=== PATIENT | male | born 1950 | race Caucasian/White ===

== ENCOUNTER 2020-02-04 16:10 | Outpatient (CLI) | payer MEDICARE, OTHER, SELFPAY ==
[2020-02-04 16:51] LABS: Basophils # 0.1 10^3/uL (0.0-0.1); Basophils % 0.9 %; Eosinophils # 0.1 10^3/uL (0.0-0.8); Eosinophils % 1.6 %; Hematocrit 47.8 % (42.0-52.0); Hemoglobin 16.1 g/dL (11.7-16.6); Lymphocytes # 1.9 10^3/uL (0.8-4.8); Lymphocytes % 22.6 %; Mean Corpuscular HGB Conc 33.7 g/dL (30.0-36.0); Mean Corpuscular Hemoglobin 31.1 pg (28.0-34.0); Mean Corpuscular Volume 92.5 fL (80-94); Mean Platelet Volume 10.2 fL (7.4-10.4); Monocytes # 0.9 10^3/uL (0.2-0.9); Monocytes % 11.4 %; Neutrophils # 5.18 10^3/uL (1.8-7.7); Neutrophils % 63.1 %; Nucleated Red Blood Cells % 0 %; Platelet Count 286 10^3/cmm (130-400); Red Blood Count 5.17 10^6/uL (4.1-5.3); Red Cell Distribution Width 13.2 % (12.1-15.1); White Blood Count 8.2 10^3/uL (4.0-10.0)
[2020-02-04 17:14] LABS: Prostate Specific Antigen 0.489 ng/mL (0-4); Thyroid Stimulating Hormone 3.39 uIU/mL (0.27-4.20)
[2020-02-04 17:25] LABS: Alanine Aminotransferase 19 U/L (0-41); Alkaline Phosphatase 70 IU/L (40-130); Anion Gap 17.7 (5-19); Aspartate Amino Transferase 23 U/L (0-40); Blood Urea Nitrogen 8 mg/dL (8-23); Calcium 10.3 mg/dL (8.5-10.5); Carbon Dioxide 25 mmol/L (22-29); Chloride 94 mmol/L (98-107); Chol HDL Ratio 2.91 mg/dL (1.0-5.00); Cholesterol 186 mg/dL (0-200); Globulin 2.3 g/dL (1.3-4.6); Glucose 93 mg/dL (65-115); HDL Cholesterol 64 mg/dL (60-100); LDL Cholesterol Calculated 101 mg/dL (50-129); LDL HDL Ratio 1.58 RATIO (0.00-3.22); Osmolality Calculated 270 mOsm/kg (285-295); Potassium 4.7 mmol/L (3.5-5.1); Sodium 132 mmol/L (136-145); Total Bilirubin 0.4 mg/dL (0.15-1.2); Total Protein 7.3 g/dL (6.6-8.7); Triglycerides 103 mg/dL (0-150)
[2020-02-04 17:58] LABS: Estmated Average Glucose 134; Hemoglobin A1C 6.3 % (4.0-6.0)
== END 2020-02-04 16:11 | disposition home or self-care (01) ==
LOC: LAB 16:15
PROVIDERS: Visit Provider Nurse Practitioner Family
DX: C61 Malignant neoplasm of prostate (principal); I10 Essential (primary) hypertension
CPT/HCPCS: 80053; 80061; 83036; 84153; 84443; 85025